=== PATIENT | female | born 1955 | race Caucasian/White ===

== ENCOUNTER 2020-11-27 11:01 | Day surgery (SDC) | payer MEDICARE, OTHER ==
[~2020-11-27] VITALS: Ht 157.5 cm; Wt 130.6 kg
[2020-11-27] MEDS ORDERED: LIDOCAINE 2% 100 MG/5 ML UJET TP ONE (13:34)
[2020-11-27] MEDS ORDERED: fentaNYL citrate 0.05 MG/ML VIAL ONE (13:34)
[2020-11-27] MEDS ORDERED: MIDAZOLAM 2 MG/2 ML VIAL ONE (13:34)
[2020-11-27] MEDS ORDERED: fentaNYL citrate 0.05 MG/ML VIAL IVP ONE (14:05)
== END 2020-11-27 14:40 | disposition home or self-care (01) ==
LOC: MDS 11:01 → MMU 11:03 → MDS 14:40
PROVIDERS: ATTEND Internal Medicine Gastroenterology
DX: Z12.11 Encounter for screening for malignant neoplasm of colon (principal); K57.30 Diverticulosis of large intestine without perforation or abscess without bleeding; F41.9 Anxiety disorder, unspecified; F32.9 Major depressive disorder, single episode, unspecified; I10 Essential (primary) hypertension; J45.909 Unspecified asthma, uncomplicated; Z98.51 Tubal ligation status; Z79.899 Other long term (current) drug therapy
CPT/HCPCS: G0121; J3010; J2250